=== PATIENT | female | born 1975 | race Two or more races ===

== ENCOUNTER 2022-07-15 18:15 | Emergency (ER) | payer BC ==
[~2022-07-15] VITALS: Ht 162.6 cm; Wt 86.4 kg
[~2022-07-15 18:15] MED LIST: LOP2C PO; ONDA-133 PO; TRAM50TA2 PO
[2022-07-15] MEDS ORDERED: KETOROLAC TROMETH 60MG/2ML VIAL IM ONE (18:45)
[2022-07-15] MEDS ORDERED: ONDANSETRON ODT 4 MG TAB PO ONE (23:45)
[2022-07-16 01:19] LABS: Basophils # (auto) 0.1 10 ^3/uL (0-0.2); Basophils % (auto) 1.1 % (0.0-2.0); Eosinophils # (auto) 0.2 10 ^3/uL (0-0.8); Eosinophils % (auto) 2.7 % (0.0-7.0); Hematocrit 37.4 % (36.0-46.0); Hemoglobin 12.6 g/dL (12.2-16.2); Lymphocytes % (auto) 36.7 % (10.0-50.0); Mean Corpuscular Hemoglobin 30.1 pg (28.0-32.0); Mean Corpuscular Hgb Conc. 33.7 g/dL (32.0-36.0); Mean Corpuscular Volume 89.3 fL (80.0-100.0); Monocytes # (auto) 0.7 10 ^3/uL (0-1.3); Monocytes % (auto) 8.8 % (0.0-12.0); Neutrophils # (auto) 4.1 10 ^3/uL (1.6-8.6); Neutrophils % (auto) 50.7 % (37.0-80.0); Nucleated Red Blood Cells % 0.1 %; Red Blood Cells 4.19 10^6/uL (4.0-5.20); Red Cell Distribution Width 13.7 % (11.8-14.3); White Blood Cell 8.1 10^3/uL (4.4-10.8)
[2022-07-16 01:48] LABS: Albumin 3.5 g/dL (3.4-5.0); Calcium 8.8 mg/dL (8.5-10.1); Potassium 3.8 mmol/L (3.5-5.1)
[2022-07-16 01:53] LABS: Bilirubin, Total 0.7 mg/dL (0.2-1.0); Total Protein 7.6 g/dL (6.4-8.2)
[2022-07-16] MEDS ORDERED: MORPHINE SULFATE 4 MG/ML SYR/VIAL IM ONE (02:15)
[2022-07-16 03:26] VITALS: BP 105/56
[2022-07-16] MEDS ORDERED: ACE3T PO (04:59)
== END 2022-07-16 06:18 | disposition home or self-care (01) ==
LOC: EEVIPCON 18:15 → ER 18:15
DX: S60.211A Contusion of right wrist, initial encounter (principal); Z90.49 Acquired absence of other specified parts of digestive tract; Z90.710 Acquired absence of both cervix and uterus; Z87.891 Personal history of nicotine dependence; Z88.6 Allergy status to analgesic agent; Z88.8 Allergy status to other drugs, medicaments and biological substances; W17.89XA Other fall from one level to another, initial encounter; Y93.89 Activity, other specified; Y92.89 Other specified places as the place of occurrence of the external cause; Y99.8 Other external cause status
CPT/HCPCS: 36415; 70450; 73110; 73130; 80053; 85025; 96372; 99285; J1885; J2270; Q0162

== ENCOUNTER 2022-11-12 03:34 | Emergency (ER) | payer BC ==
[~2022-11-12] VITALS: Ht 162.6 cm; Wt 95.5 kg
[~2022-11-12 03:34] MED LIST changes: +ACE3T PO; +AMOX500T86 PO
[2022-11-12] MEDS ORDERED: ONDANSETRON HCL 4 MG/2 ML VIAL IV ONE (04:00)
[2022-11-12] MEDS ORDERED: HYDROmorphone HCL 2 MG/ML VL/or syr IV ONE ×2 (04:00→07:00)
[2022-11-12] MEDS ORDERED: SODIUM CHLORIDE 0.9% 1,000 ML IV ONE (04:15)
[2022-11-12 04:34] LABS: Basophils # (auto) 0.1 10 ^3/uL (0-0.2); Basophils % (auto) 0.8 % (0.0-2.0); Eosinophils # (auto) 0.2 10 ^3/uL (0-0.8); Eosinophils % (auto) 2.5 % (0.0-7.0); Hematocrit 37.2 % (36.0-46.0); Hemoglobin 12.6 g/dL (12.2-16.2); Lymphocytes # (auto) 2.4 10 ^3/uL (0.4-5.4); Lymphocytes % (auto) 29.8 % (10.0-50.0); Mean Corpuscular Hemoglobin 30.7 pg (28.0-32.0); Mean Corpuscular Hgb Conc. 33.9 g/dL (32.0-36.0); Mean Corpuscular Volume 90.7 fL (80.0-100.0); Monocytes # (auto) 0.9 10 ^3/uL (0-1.3); Monocytes % (auto) 10.8 % (0.0-12.0); Neutrophils # (auto) 4.6 10 ^3/uL (1.6-8.6); Neutrophils % (auto) 56.1 % (37.0-80.0); Nucleated Red Blood Cells % 0.1 %; Red Cell Distribution Width 13.9 % (11.8-14.3); White Blood Cell 8.1 10^3/uL (4.4-10.8)
[2022-11-12 05:12] LABS: Albumin 3.2 g/dL (3.4-5.0); BUN/Creatinine Ratio 26.6; Potassium 3.6 mmol/L (3.5-5.1)
[2022-11-12 05:15] LABS: Bilirubin, Total 0.3 mg/dL (0.2-1.0); Total Protein 7.2 g/dL (6.4-8.2)
[2022-11-12] MEDS ORDERED: IOHEXOL 300 MG/ML 100ML BOTTLE IJ ONE (05:42)
[2022-11-12 06:48] LABS: Urine Bacteria FEW /hpf (None Seen); Urine Blood Negative /uL (Negative); Urine Mucus FEW (None Seen); Urine Specific Gravity 1.042 (1.001-1.035); Urine WBC 3 /hpf (0 - 5)
[2022-11-12 07:07] VITALS: BP 106/54
== END 2022-11-12 07:21 | disposition home or self-care (01) ==
LOC: EEVIPCON 03:34 → ER 03:34
DX: K57.90 Diverticulosis of intestine, part unspecified, without perforation or abscess without bleeding (principal); R10.31 Right lower quadrant pain; R11.0 Nausea; F32.9 Major depressive disorder, single episode, unspecified; Z88.6 Allergy status to analgesic agent; Z88.8 Allergy status to other drugs, medicaments and biological substances; Z79.899 Other long term (current) drug therapy; Z90.49 Acquired absence of other specified parts of digestive tract; Z90.710 Acquired absence of both cervix and uterus; Z87.891 Personal history of nicotine dependence
CPT/HCPCS: 36415; 74177; 80053; 81001; 83690; 85025; 96361; 96374; 96375; 96376; 99285; J1170; J2405; J7030; Q9967

== ENCOUNTER 2023-05-11 14:30 | Inpatient (IN) | payer BC ==
[~2023-05-11] VITALS: Ht 162.6 cm; Wt 121.6 kg
[2023-05-11] MEDS: ENOXAPARIN SOD 40 MG/0.4 ML SYRINGE SC SCH (10:00)
[~2023-05-11 14:30] MED LIST changes: +AZITTAB PO
[2023-05-11 15:21] LABS: Basophils # (auto) 0 10 ^3/uL (0-0.2); Basophils % (auto) 0.7 % (0.0-2.0); Eosinophils # (auto) 0.2 10 ^3/uL (0-0.8); Eosinophils % (auto) 2.6 % (0.0-7.0); Hemoglobin 12.8 g/dL (12.2-16.2); Lymphocytes # (auto) 2.5 10 ^3/uL (0.4-5.4); Lymphocytes % (auto) 37.3 % (10.0-50.0); Mean Corpuscular Hemoglobin 29.2 pg (28.0-32.0); Mean Corpuscular Hgb Conc. 32.9 g/dL (32.0-36.0); Mean Corpuscular Volume 88.8 fL (80.0-100.0); Monocytes # (auto) 0.6 10 ^3/uL (0-1.3); Neutrophils # (auto) 3.4 10 ^3/uL (1.6-8.6); Neutrophils % (auto) 50.4 % (37.0-80.0); Nucleated Red Blood Cells % 0.2 %; Red Cell Distribution Width 14.2 % (11.8-14.3); White Blood Cell 6.7 10^3/uL (4.4-10.8)
[2023-05-11 15:40] VITALS: PULSE 83; RESP 16; O2SAT 97
[2023-05-11 15:54] LABS: Albumin 3.4 g/dL (3.4-5.0); BUN/Creatinine Ratio 23.1 (10.0-20.0); Bilirubin, Total 0.9 mg/dL (0.2-1.0); Calcium 8.7 mg/dL (8.5-10.1); Magnesium 2.4 mg/dL (1.6-2.6); Total Protein 7.1 g/dL (6.4-8.2)
[2023-05-11] MEDS ORDERED: MORPHINE SULFATE 4 MG/ML SYR/VIAL IV ONE (16:30)
[2023-05-11] MEDS ORDERED: ONDANSETRON HCL 4 MG/2 ML VIAL IV ONE ×2 (16:30→19:30)
[2023-05-11] MEDS ORDERED: LORazepam 2MG/ML-1ML VIAL IV ONE (16:30)
[2023-05-11 16:36] LABS: Urine Bacteria MOD /hpf (None Seen); Urine Blood Negative /uL (Negative); Urine Clarity Clear (Clear); Urine Color Yellow (Yellow); Urine Mucus FEW (None Seen); Urine Protein, UAD Negative (Negative); Urine Urobilinogen Normal (Negative); Urine WBC 3 /hpf (0 - 5)
[2023-05-11] MEDS ORDERED: HYDR-4902 PO (17:05)
[2023-05-11] MEDS ORDERED: MECL25CH85 PO (17:05)
[2023-05-11] MEDS ORDERED: SODIUM CHLORIDE 0.9% 1,000 ML IV ONE (19:30)
[2023-05-11] MEDS ORDERED: HYDROmorphone HCL 2 MG/ML VL/or syr IV ONE (19:30)
[2023-05-11] MEDS ORDERED: MECLIZINE HCL 25 MG TAB PO ONE (19:30)
[2023-05-11 21:30] VITALS: PULSE 91; O2SAT 99
[2023-05-11] MEDS ORDERED: DOCUSATE SOD 100 MG CAP PO PRN (23:30)
[2023-05-11] MEDS ORDERED: MORPHINE SULFATE INJ 2 MG/ml SYRG IV PRN (23:30)
[2023-05-11] MEDS ORDERED: NITROGLYCERIN 0.4 MG SL TAB SL PRN (23:30)
[2023-05-11] MEDS ORDERED: LORazepam 2MG/ML-1ML VIAL IV PRN (23:30)
[2023-05-11] MEDS ORDERED: HYDROcodone-ACET 5/325MG TAB PO PRN (23:30)
[2023-05-12 00:15] LABS: COVID19 ANTIGEN SOFIA FIA NEGATIVE (NEGATIVE)
[2023-05-12] MEDS: ONDANSETRON HCL 4 MG/2 ML VIAL IV PRN ×4 (01:14→21:05)
[2023-05-12] MEDS: HYDROmorphone HCL 2 MG/ML VL/or syr IV PRN ×4 (01:16→21:10)
[2023-05-12] MEDS: MECLIZINE HCL 25 MG TAB PO PRN (03:49)
[2023-05-12] MEDS: SODIUM CHLOR 0.9% PF (SALINE LOCK) 10ML VIAL/SYR IV SCH ×3 (06:03→21:14)
[2023-05-12 06:22] LABS: Basophils # (auto) 0 10 ^3/uL (0-0.2); Basophils % (auto) 0.6 % (0.0-2.0); Eosinophils # (auto) 0.2 10 ^3/uL (0-0.8); Eosinophils % (auto) 2.6 % (0.0-7.0); Hematocrit 38.8 % (36.0-46.0); Hemoglobin 12.8 g/dL (12.2-16.2); Lymphocytes # (auto) 2.7 10 ^3/uL (0.4-5.4); Lymphocytes % (auto) 40.3 % (10.0-50.0); Mean Corpuscular Hemoglobin 29.4 pg (28.0-32.0); Mean Corpuscular Volume 88.9 fL (80.0-100.0); Monocytes # (auto) 0.7 10 ^3/uL (0-1.3); Monocytes % (auto) 10.4 % (0.0-12.0); Neutrophils # (auto) 3.1 10 ^3/uL (1.6-8.6); Neutrophils % (auto) 46.1 % (37.0-80.0); Nucleated Red Blood Cells % 0.1 %; Red Blood Cells 4.37 10^6/uL (4.0-5.20); Red Cell Distribution Width 13.7 % (11.8-14.3); White Blood Cell 6.6 10^3/uL (4.4-10.8)
[2023-05-12 06:40] LABS: Potassium 3.5 mmol/L (3.5-5.1)
[2023-05-12 06:44] LABS: Albumin 3.2 g/dL (3.4-5.0); BUN/Creatinine Ratio 17.7 (10.0-20.0); Calcium 8.1 mg/dL (8.5-10.1)
[2023-05-12 06:47] LABS: Bilirubin, Total 1.1 mg/dL (0.2-1.0); Total Protein 7.2 g/dL (6.4-8.2)
[2023-05-12 06:48] VITALS: BP 113/76; PULSE 95; RESP 18; TEMP 97.8; O2SAT 98
[2023-05-12 08:00] VITALS: BP 122/65; PULSE 82; PULSE 91; RESP 20; TEMP 98.2
[2023-05-12 09:00] VITALS: BP 113/76; PULSE 95; RESP 18; TEMP 97.8; O2SAT 98
[2023-05-12] MEDS ORDERED: LORazepam 2MG/ML-1ML VIAL IV ONE (09:30)
[2023-05-12] MEDS ORDERED: diazePAM 5 MG TAB PO ONE (10:00)
[2023-05-12] MEDS: FAMOTIDINE (10MG/ML) 2ML VL IV SCH ×2 (10:30→21:03)
[2023-05-12] MEDS: ENOXAPARIN SOD 40 MG/0.4 ML SYRINGE SC SCH (10:31)
[2023-05-12] MEDS ORDERED: IOHEXOL 350 MG/ML 100ML IJ ONE (13:34)
[2023-05-12 15:43] LABS: Cholesterol 227 mg/dL (< 200); HDL Cholesterol 50 mg/dL (40-59); LDL Cholesterol 151 mg/dL (< 100); Triglycerides 131 mg/dL (< 150)
[2023-05-12 17:00] VITALS: BP_SYST 109; BP_SYST 122; BP_SYST 127; BP_DIAS 56; BP_DIAS 64; BP_DIAS 65; PULSE 77; RESP 18; TEMP 97.7; O2SAT 98
[2023-05-12 20:00] VITALS: PULSE 74
[2023-05-13] MEDS: ONDANSETRON HCL 4 MG/2 ML VIAL IV PRN (04:46)
[2023-05-13] MEDS: HYDROmorphone HCL 2 MG/ML VL/or syr IV PRN ×2 (04:47→09:41)
[2023-05-13 05:00] VITALS: BP 113/65; PULSE 90; RESP 20; TEMP 97.4; O2SAT 97
[2023-05-13] MEDS: SODIUM CHLOR 0.9% PF (SALINE LOCK) 10ML VIAL/SYR IV SCH ×2 (06:51→15:09)
[2023-05-13] MEDS: IBUPROFEN 800 MG TAB PO PRN ×2 (06:57→15:11)
[2023-05-13 08:00] VITALS: PULSE 67
[2023-05-13 09:00] VITALS: BP 112/67; PULSE 94; RESP 17; TEMP 98.4; O2SAT 93
[2023-05-13] MEDS: ENOXAPARIN SOD 40 MG/0.4 ML SYRINGE SC SCH (09:41)
[2023-05-13] MEDS: FAMOTIDINE (10MG/ML) 2ML VL IV SCH (09:43)
[2023-05-13] MEDS: MECLIZINE HCL 25 MG TAB PO PRN (09:48)
[2023-05-13] MEDS ORDERED: HYDROcodone-ACET 10/325MG TAB PO PRN (10:30)
[2023-05-13] MEDS ORDERED: HYDR-4798 PO (10:58)
[2023-05-13] MEDS ORDERED: SODIUM CHLORIDE 0.9% 500 ML IV ONE (11:00)
[2023-05-13 13:00] VITALS: BP 100/47; PULSE 78; RESP 20; TEMP 98.3; O2SAT 97
[2023-05-13 15:23] VITALS: BP 115/65; PULSE 90; RESP 18; TEMP 98; O2SAT 96
[2023-05-13 17:00] VITALS: BP 95/52; PULSE 85; RESP 18; TEMP 98; O2SAT 97
== END 2023-05-13 18:25 | disposition home health service (06) | DRG 149 ==
LOC: EDBD 14:30 → ER 14:30 → EEVIPCON 23:31 → TELE 23:31 → TELE-EAST 05-12 06:26
PROVIDERS: ADMIT Nurse Practitioner Family; ATTEND Internal Medicine
DX: H81.10 Benign paroxysmal vertigo, unspecified ear (principal); I49.9 Cardiac arrhythmia, unspecified; E66.01 Morbid (severe) obesity due to excess calories; M25.561 Pain in right knee; F17.210 Nicotine dependence, cigarettes, uncomplicated; R79.89 Other specified abnormal findings of blood chemistry; F41.9 Anxiety disorder, unspecified; M25.461 Effusion, right knee; R55 Syncope and collapse; F32.A Depression, unspecified; Z20.822 Contact with and (suspected) exposure to COVID-19; S83.206A Unspecified tear of unspecified meniscus, current injury, right knee, initial encounter; Z90.710 Acquired absence of both cervix and uterus; Z90.49 Acquired absence of other specified parts of digestive tract; W19.XXXA Unspecified fall, initial encounter; Y93.89 Activity, other specified; Y92.89 Other specified places as the place of occurrence of the external cause; Y99.8 Other external cause status; Z68.32 Body mass index [BMI] 32.0-32.9, adult; R53.1 Weakness
CPT/HCPCS: 36415; 70450; 70551; 71045; 71275; 73560; 73700; 73721; 80053; 80061; 81001; 83036; 83735; 84443; 84484; 85025; 85379; 87426; 93005; 93306; 93886; 93970; 95819; 96374; 96375; 96376; 97163; G0378; J2405; J3490